=== PATIENT | female | born 1970 | race Caucasian/White ===

== ENCOUNTER 2019-09-09 14:16 | Inpatient (IN) | payer OTHER ==
[~2019-09-09] VITALS: Ht 157.5 cm; Wt 84.0 kg
[2019-09-09] MEDS ORDERED: LISI-538 PO (14:45)
[2019-09-09] MEDS ORDERED: CHLO125TA PO (14:46)
[2019-09-09] MEDS ORDERED: AMLO25TA PO (14:47)
[2019-09-09 14:48] LABS: BASO # 0.1 10^3/uL (0.0-0.2); BASO % 0.8 % (0.0-1.0); EOS # 0.1 10^3/uL (0.0-0.5); EOS % 0.7 % (0.0-3.0); HEMATOCRIT 43.5 % (36.0-47.0); HEMOGLOBIN 15.4 g/dl (12.0-15.5); LYMPH # 1.1 10^3/uL (1.5-5.0); LYMPH % 12.7 % (24.0-44.0); MEAN CORPUSCULAR HEMOGLOBIN 31.4 pg (27.0-33.0); MEAN CORPUSCULAR HGB CONC 35.4 g/dl (32.0-36.5); MEAN CORPUSCULAR VOLUME 88.8 fl (80.0-96.0); MONO # 0.7 10^3/uL (0.0-0.8); MONO % 7.9 % (0.0-5.0); NEUTROPHILS # 6.5 10^3/uL (1.5-8.5); NEUTROPHILS % 77.5 % (36.0-66.0); PLATELET COUNT, AUTOMATED 228 10^3/uL (150-450); WHITE BLOOD COUNT 8.4 10^3/uL (4.0-10.0)
[2019-09-09] MEDS ORDERED: SERT25TA85 PO (14:48)
[2019-09-09] MEDS ORDERED: NITROGLYCERIN 0.4 MG SUBL TABLET SL PRN (15:00)
[2019-09-09 15:06] LABS: INR 1.14; PROTHROMBIN TIME 14.3 SECONDS (11.8-14.0)
[2019-09-09 15:11] LABS: HCG, SERUM QUALITATIVE NEGATIVE (NEGATIVE)
[2019-09-09 15:15] LABS: BLOOD UREA NITROGEN 10 MG/DL (7-18); CALCIUM LEVEL 9.2 MG/DL (8.5-10.1); CARBON DIOXIDE LEVEL 26 MEQ/L (21-32); CHLORIDE LEVEL 105 MEQ/L (98-107); CPK CREATINE PHOSPHOKINASE 97 U/L (26-192); CREATININE FOR GFR 0.75 MG/DL (0.55-1.30); GLOMERULAR FILTRATION RATE > 60.0 (>58); GLUCOSE, FASTING 86 MG/DL (70-100); MB/CK RELATIVE INDEX 1.03 (< OR =4); POTASSIUM SERUM 3.5 MEQ/L (3.5-5.1); SODIUM LEVEL 140 MEQ/L (136-145); TROPONIN I 0.09 NG/ML (< 0.10)
[2019-09-09] MEDS ORDERED: ACETAMINOPHEN TAB 650MG DOSE (2X325MG) PO ONE (15:15)
[2019-09-09] MEDS ORDERED: LABETALOL HCL 100 MG/20 ML VIAL IV STA ×2 (17:01→18:21)
[2019-09-09 19:11] LABS: CK-MB VALUE MASS < 1.0 NG/ML (<3.6); CPK CREATINE PHOSPHOKINASE 66 U/L (26-192); MB/CK RELATIVE INDEX 1.52 (< OR =4)
[2019-09-09] MEDS ORDERED: MAALOX 30 ML SUSP *UDC PO PRN (20:00)
[2019-09-09] MEDS ORDERED: MOM 30ML SUSPENSION UDC PO PRN (20:00)
[2019-09-09] MEDS ORDERED: SERT-155 PO (20:07)
[2019-09-09] MEDS ORDERED: MULTCAP PO (20:07)
--- NOTE | 2019-09-09 20:13 | HPEPDOC ---
General Date of Admission 09/09/19 Date of Service: Sep 09, 2019 Primary Care Physician: A Other Providers [facility] Chief Complaint The patient is a 48-year-old female admitted with a reason for visit of Chest Pain. Source: Patient Exam Limitations: No limitations Timing/Duration: Other Severity: Moderate (today) Associated Symptoms: Chest Pain History of Present Illness 48 years old white female who follows up with [facility] with past medical history of hypertension only has developed on and off chest pain, chest pains or pressure like in nature, radiating to the left arm, not associated with any other symptoms except nausea relieved with nitroglycerin and beta lynda meds. No relationship with any position. Patient at present time is asymptomatic without any chest pain during my interview. Dr. Morales was called from ED and he advised to admit patient to rule out any ischemic event and to control hypertension Home Medications Scheduled Amlodipine Besylate (Amlodipine Besylate) 2.5 Mg Tablet, 2.5 MG PO DAILY, (Reported) Chlorthalidone (Chlorthalidone) 25 Mg Tablet, 25 MG PO DAILY, (Reported) Lisinopril (Lisinopril) 20 Mg Tablet, 20 MG PO DAILY, (Reported) Sertraline Hcl (Sertraline HCl) 25 Mg Tablet, 25 MG PO DAILY, (Reported) Allergies Coded Allergies: No Known Allergies (Unverified , 09/09/19) Past Medical History Medical History Hypertension Surgical History Social History * Smoker: Denies Alcohol: Denies Drugs: denies A-FIB/CHADSVASC A-FIB History Current/History of A-Fib/PAF?: No Review of Systems Constitutional: Denies: Chills, Fever, Malaise, Night Sweats, Weakness, Fatigue, Weight Loss, Lethargy, Other Eyes: Denies: Pain, Vision change, Conjunctivae inflammation, Eyelid inflammation, Redness, Other ENT: Denies: Head Aches, Ear Pain, Dysphagia, Sinus Congestion, Post Nasal Drip, Sore Throat, Epistaxis, Other Symptoms Cardiovascular: Reports: Chest Pain Gastrointestinal: Denies: Nausea, Vomiting, Abdominal Pain, Diarrhea, Constipation, Melena, Hematochezia, Other Symptoms Genitourinary: Denies: Dysuria, Frequency, Incontinence, Hematuria, Retention, Other Symptoms Hematologic: Denies: Bruising, Bleeding Excessively, Petecchia, Purpura, Enl arged Lymph Nodes, Other Hematologic Endocrine: Denies: Polydipsia, Polyphagia, Polyuria, Heat Intolerance, Cold Intolerance, Other Endocrine Sx Musculoskeletal: Denies: Neck Pain, Back Pain, Shoulder Pain, Arm Pain, Hand Pain, Leg Pain, Foot Pain, Joint Pain, Muscle Pain, Spasms, Other Symptoms Neurological: Denies: Weakness, Numbness, Incoordination, Change in speech, Confusion, Seizures, Other Symptoms Psych: Denies: Mood Normal, Anxiety, Depression, Memory Issues, Thoughts of Self Harm, Anger, Thoughts of Harming Other, Other Psych Physical Examination General Exam: Positive: Alert, Cooperative Eye Exam: Positive: PERRLA, Conjunctiva & lids normal ENT Exam: Positive: Atraumatic, Mucous membr. moist/pink Neck Exam: Positive: Supple Chest Exam: Positive: Clear to auscultation, Normal air movement Abdomen Exam: Positive: Normal bowel sounds, Soft Extremity Exam: Positive: Normal pulses Skin Exam: Positive: Nl turgor and temperature Neuro Exam: Positive: Strength at 5/5 X4 ext, Sensation Intact Psych Exam: Positive: Mental status NL, Mood NL, Oriented x 3 Vital Signs Vital Signs Date Time Temp Pulse Resp B/P (MAP) Pulse Ox O2 Delivery O2 Flow Rate FiO2 09/09/19 19:00 154/72 (99) 09/09/19 18:55 57 97 09/09/19 16:40 98.2 09/09/19 14:16 20 Room Air Laboratory Data Labs 24H Laboratory Tests 2 09/09/19 14:33: Immature Granulocyte % (Auto) 0.4, White Blood Count 8.4, Red Blood Count 4.90, Hemoglobin 15.4, Hematocrit 43.5, Mean Corpuscular Volume 88.8, Mean Corpuscular Hemoglobin 31.4, Mean Corpuscular Hemoglobin Concent 35.4, Red Cell Distribution Width 13.1, Platelet Count 228, Neutrophils (%) (Auto) 77.5H, Lymphocytes (%) (Auto) 12.7L, Monocytes (%) (Auto) 7.9H, Eosinophils (%) (Auto) 0.7, Basophils (%) (Auto) 0.8, Neutrophils # (Auto) 6.5, Lymphocytes # (Auto) 1.1L, Monocytes # (Auto) 0.7, Eosinophils # (Auto) 0.1, Basophils # (Auto) 0.1, Nucleated Red Blood Cells % (auto) 0.0, Prothrombin Time 14.3H, Prothromb Time International Ratio 1.14, Anion Gap 9, Glomerular Filtration Rate > 60.0, Blood Urea Nitrogen 10, Creatinine 0.75, Sodium Level 140, Potassium Level 3.5, Chloride Level 105, Carbon Dioxide Level 26, Calcium Level 9.2, Total Creatine Kinase 97, Creatine Kinase MB 1.0, Creatine Kinase MB Relative Index 1.03, Troponin I 0.09, Human Chorionic Gonadotropin, Qual NEGATIVE 09/09/19 18:30: Total Creatine Kinase 66, Creatine Kinase MB < 1.0, Creatine Kinase MB Relative Index 1.52, Troponin I 0.10 CBC/BMP Laboratory Tests 09/09/19 14:33 Red Blood Count 4.90, Mean Corpuscular Volume 88.8, Mean Corpuscular Hemoglobin 31.4, Mean Corpuscular Hemoglobin Concent 35.4, Red Cell Distribution Width 13.1, Neutrophils (%) (Auto) 77.5 H, Lymphocytes (%) (Auto) 12.7 L, Monocytes (%) (Auto) 7.9 H, Eosinophils (%) (Auto) 0.7, Basophils (%) (Auto) 0.8, Neutrophils # (Auto) 6.5, Lymphocytes # (Auto) 1.1 L, Monocytes # (Auto) 0.7, Eosinophils # (Auto) 0.1, Basophils # (Auto) 0.1, Calcium Level 9.2, Total Creatine Kinase 97 Problems (1) Chest pain Status: Acute Problem Text: 38 years old white female with past medical history of uncontrolled hypertension, came in with presentation of chest pain on and off since this morning which gets relieved with nitroglycerin and beta lynda. Once her pressure comes down. Dr. Morales was called from ED and he recommended admission for ruling out ischemic event and to control hypertension Admit to PCU with cardiac telemetry First 2. Cardiac enzymes are essentially negative. Will repeat third enzyme tonight Echocardiogram has been ordered EKG shows right bundle branch block and nonspecific ST-T changes Chest x-ray is essentially within normal limits Lipid profile in a.m. CBC, CMP in a.m. And metoprolol 25 mg by mouth every 12 hours Increase Norvasc to 5 mg by mouth daily Continue lisinopril 20 mg by mouth daily Other recommendations as per cardiology. Once the workup is complete 2 g sodium diet Activity as tolerated Lovenox for DVT prophylaxis (2) Uncontrolled hypertension Status: Chronic Problem Text: add Metoprolol tartrate 25 mg every 12 hours Increase Norvasc to 5mg daily Continue lisinopril 20 mg by mouth daily Plan / VTE VTE Prophylaxis Ordered?: Yes DEBBY KRAMER MD Sep 09, 2019 20:13
[2019-09-09] MEDS ORDERED: zolPIDEM TARTRATE 5 MG TAB PO PRN (20:15)
[2019-09-09 20:53] VITALS: BP 175/81
[2019-09-09] MEDS ORDERED: SERTRALINE HCL 25 MG TABLET PO SCH (21:00)
[2019-09-09] MEDS: METOPROLOL SUCC *XL* 25MG TAB (TopROL *XL*) PO SCH (21:00)
[2019-09-09] MEDS: DOCUSATE SODIUM 100 MG CAP PO SCH (21:36)
[2019-09-09] MEDS ORDERED: LISINOPRIL 20 MG TAB PO SCH (22:00)
[2019-09-09] MEDS: ACETAMINOPHEN TAB 650MG DOSE (2X325MG) PO PRN (23:52)
[2019-09-10] VITALS (8 sets, daily range): BP systolic 134–167; BP diastolic 71–100
[2019-09-10 06:16] LABS: HEMATOCRIT 39.6 % (36.0-47.0); HEMOGLOBIN 13.5 g/dl (12.0-15.5); MEAN CORPUSCULAR HEMOGLOBIN 30.5 pg (27.0-33.0); MEAN CORPUSCULAR HGB CONC 34.1 g/dl (32.0-36.5); MEAN CORPUSCULAR VOLUME 89.4 fl (80.0-96.0); PLATELET COUNT, AUTOMATED 215 10^3/uL (150-450); RED BLOOD COUNT 4.43 10^6/uL (4.00-5.40)
[2019-09-10 06:46] LABS: ALBUMIN 3.4 GM/DL (3.2-5.2); ALT/SGPT 53 U/L (12-78); BILIRUBIN,TOTAL 0.8 MG/DL (0.2-1.0); BLOOD UREA NITROGEN 11 MG/DL (7-18); CALCIUM LEVEL 8.9 MG/DL (8.5-10.1); CARBON DIOXIDE LEVEL 31 MEQ/L (21-32); CHLORIDE LEVEL 107 MEQ/L (98-107); CHOLESTEROL LEVEL 196 MG/DL (<200); CREATININE FOR GFR 0.85 MG/DL (0.55-1.30); GLOMERULAR FILTRATION RATE > 60.0 (>58); GLUCOSE, FASTING 91 MG/DL (70-100); HDL CHOLESTEROL 50 MG/DL (>40); LDL CHOLESTEROL 133 MG/DL (<100); NON-HDL-C 146 MG/DL; POTASSIUM SERUM 3.6 MEQ/L (3.5-5.1); SODIUM LEVEL 144 MEQ/L (136-145); TOTAL PROTEIN 7.3 GM/DL (6.4-8.2); TRIGLYCERIDES LEVEL 67 MG/DL (<150); TROPONIN I 0.06 NG/ML (< 0.10)
--- NOTE | 2019-09-10 07:27 | REP ---
REASON: Chest pain. FINDINGS: The technique utilized in obtaining the radiograph has magnified the cardiac silhouette and accentuated the interstitial markings. The superior mediastinal structures are midline. The cardiac silhouette is unremarkable in size, shape, and position. The diaphragmatic surfaces of the lungs are regular, and the costophrenic angles are clear. The pulmonary khanna are clear. The imaged osseous structures are intact. IMPRESSION: There is no acute cardiopulmonary disease. Electronically Signed by Eugene Johnston DO 09/10/2019 08:58 A
[2019-09-10] MEDS: DOCUSATE SODIUM 100 MG CAP PO SCH ×2 (08:47→21:21)
[2019-09-10] MEDS: METOPROLOL SUCC *XL* 25MG TAB (TopROL *XL*) PO SCH ×2 (08:48→21:23)
[2019-09-10] MEDS: SERTRALINE HCL 50 MG TAB PO SCH (08:49)
[2019-09-10] MEDS: ENOXAPARIN 40 MG/0.4 ML SYRINGE (J1650) SC SCH (08:49)
[2019-09-10] MEDS ORDERED: LISINOPRIL 20 MG TAB PO SCH (09:00)
[2019-09-10] MEDS ORDERED: amLODIPine 5 MG TAB PO SCH (09:00)
--- NOTE | 2019-09-10 11:26 | IPNPDOC ---
Text Note Date of Service The patient was seen on 09/10/19. NOTE Subjective: No any acute events overnight. Patient stated that the chest pain subsided. Patient denies any fever and chills,palpitations, shortness of breath, nausea or vomiting Objective: Vitals: reviewed General: Alert and oriented x 3, not in distress HEENT: No pallor, Mild scleral icterus. Normal oropharynx, NO cervical lymph nodes. Chest: symmetric with bilateral clear air entry, CVS: S1, S2 heard, normal, no murmurs . Abdomen: non-distended, no surgical scars, soft, Minimal tender, no palpable masses, normal bowel sounds heard. Rectal exam: Patient refused / Deferred at this time. Extremities: no pedal edema, pulses palpable. BORDER INSPECTOR: no focal motor or sensory deficits. Moves all extremities Skin: no rash. Assessment and plan Patient is 48 years old female with past medical history of hypertension presented hospital with acute chest pain and hypertensive urgency. Chest pain Resolved EKG shows right bundle branch block and nonspecific ST-T changes Troponin was elevated with peak 0.1, trended down Patient has multiple risks factors for coronary artery diseases including hypertension, hyperlipidemia Continue current cardioprotective medication Appreciate/agree with enterprise application analyst consult Echo pending Most likely patient will need cardiac stress test Hypertensive emergency Blood pressures under control for now Continue cardioprotective medications I increased the dose of lisinopril to 40 mg, amlodipine to 10 mg Elevated troponin Most likely due to demand ischemia Continue to monitor Telemetry VS,Eboni, I+O VS, Eboni, I+O Laboratory Tests 09/09/19 14:33 Red Blood Count 4.90, Mean Corpuscular Volume 88.8, Mean Corpuscular Hemoglobin 31.4, Mean Corpuscular Hemoglobin Concent 35.4, Red Cell Distribution Width 13.1, Neutrophils (%) (Auto) 77.5 H, Lymphocytes (%) (Auto) 12.7 L, Monocytes (%) (Auto) 7.9 H, Eosinophils (%) (Auto) 0.7, Basophils (%) (Auto) 0.8, Neutrophils # (Auto) 6.5, Lymphocytes # (Auto) 1.1 L, Monocytes # (Auto) 0.7, Eosinophils # (Auto) 0.1, Basophils # (Auto) 0.1, Calcium Level 9.2, Total Creatine Kinase 97 09/10/19 05:34 Red Blood Count 4.43, Mean Corpuscular Volume 89.4, Mean Corpuscular Hemoglobin 30.5, Mean Corpuscular Hemoglobin Concent 34.1, Red Cell Distribution Width 13.3, Calcium Level 8.9, Aspartate Amino Transf (AST/SGOT) 24, Alanine Aminotransferase (ALT/SGPT) 53, Alkaline Phosphatase 62, Total Bilirubin 0.8, Triglycerides Level 67, LDL Cholesterol 133 H, Total Protein 7.3, Albumin 3.4 Vital Signs Date Time Temp Pulse Resp B/P (MAP) Pulse Ox O2 Delivery O2 Flow Rate FiO2 09/10/19 08:48 60 160/96 09/10/19 07:42 98.8 18 98 09/09/19 14:16 Room Air I&O- Last 24 Hours up to 6 AM 09/10/19 05:59 Intake Total 480 ml Output Total 700 ml Balance -220 ml EDIN ENRIQUE DO Sep 10, 2019 11:25
[2019-09-10] MEDS: LISINOPRIL 20 MG TAB PO SCH ×2 (11:30→21:24)
--- NOTE | 2019-09-10 19:02 | ECGEPIP ---
[facility] - ED Test Date: 2019-09-09 Pat Name: KEYANA LLANES Department: Room: [place] [address] Gender: Female [employer] Lead: isreal : 1970 Requested By: Jeremias Rey Order Number: [id number] Reading MD: Sai High Measurements Intervals Willard Rate: 50 P: 35 NH: 173 QRS: -6 QRSD: 102 T: 36 QT: 472 QTc: 433 Interpretive Statements SINUS BRADYCARDIA INCOMPLETE RIGHT BUNDLE BRANCH BLOCK MINIMAL VOLTAGE CRITERIA FOR LVH, CONSIDER NORMAL VARIANT Nonspecific ST-T wave abnormalities Rate decreased from tracing done 07-23-15 Electronically Signed on 09-10-2019 19:02:24 EDT by Sai High
[2019-09-11] MEDS: ACETAMINOPHEN TAB 650MG DOSE (2X325MG) PO PRN (02:28)
[2019-09-11 04:00] VITALS: BP 170/80
[2019-09-11 06:09] LABS: HEMATOCRIT 42.1 % (36.0-47.0); MEAN CORPUSCULAR HEMOGLOBIN 30.1 pg (27.0-33.0); MEAN CORPUSCULAR HGB CONC 33.3 g/dl (32.0-36.5); MEAN CORPUSCULAR VOLUME 90.5 fl (80.0-96.0); PLATELET COUNT, AUTOMATED 211 10^3/uL (150-450); RED BLOOD COUNT 4.65 10^6/uL (4.00-5.40)
[2019-09-11 06:23] LABS: BLOOD UREA NITROGEN 11 MG/DL (7-18); CALCIUM LEVEL 8.7 MG/DL (8.5-10.1); CARBON DIOXIDE LEVEL 31 MEQ/L (21-32); CHLORIDE LEVEL 108 MEQ/L (98-107); CREATININE FOR GFR 0.82 MG/DL (0.55-1.30); GLOMERULAR FILTRATION RATE > 60.0 (>58); GLUCOSE, FASTING 99 MG/DL (70-100); MAGNESIUM LEVEL 2.1 MG/DL (1.8-2.4); POTASSIUM SERUM 3.3 MEQ/L (3.5-5.1); SODIUM LEVEL 144 MEQ/L (136-145)
[2019-09-11 08:00] VITALS: BP 188/94
[2019-09-11] MEDS ORDERED: POTASSIUM CHLORIDE 10 MEQ SR TABLET PO ONE (08:00)
[2019-09-11] MEDS ORDERED: amLODIPine 5 MG TAB PO SCH ×2 (09:00)
[2019-09-11] MEDS: ENOXAPARIN 40 MG/0.4 ML SYRINGE (J1650) SC SCH (09:03)
[2019-09-11] MEDS: SERTRALINE HCL 50 MG TAB PO SCH (09:03)
[2019-09-11] MEDS: METOPROLOL SUCC *XL* 25MG TAB (TopROL *XL*) PO SCH (09:04)
[2019-09-11] MEDS: DOCUSATE SODIUM 100 MG CAP PO SCH ×2 (09:04→20:43)
[2019-09-11] MEDS: ATORVASTATIN 20 MG TAB PO SCH (09:04)
[2019-09-11] MEDS: LISINOPRIL 20 MG TAB PO SCH ×2 (09:04→20:42)
[2019-09-11 12:00] VITALS: BP 160/87
[2019-09-11] MEDS: hydrALAZINE INJ 20 MG/ML VIAL IV SCH ×3 (14:43→20:30)
[2019-09-11 16:00] VITALS: BP 147/62
[2019-09-11] MEDS: CHLORTHALIDONE 25 MG TAB PO SCH (17:22)
--- NOTE | 2019-09-11 19:02 | IPNPDOC ---
Text Note Date of Service The patient was seen on 09/11/19. NOTE Subjective: No any acute events overnight. No chest pain. Systolic blood pre ssure in the morning was elevated to 188 Patient denies any fever and chills,palpitations, shortness of breath, nausea or vomiting Objective: Vitals: reviewed General: Alert and oriented x 3, not in distress HEENT: No pallor, Mild scleral icterus. Normal oropharynx, NO cervical lymph nodes. Chest: symmetric with bilateral clear air entry, CVS: S1, S2 heard, normal, no murmurs . Abdomen: non-distended, no surgical scars, soft, Minimal tender, no palpable masses, normal bowel sounds heard. Rectal exam: Patient refused / Deferred at this time. Extremities: no pedal edema, pulses palpable. DETENTION ATTENDANT: no focal motor or sensory deficits. Moves all extremities Skin: no rash. Assessment and plan Patient is 48 years old female with past medical history of hypertension presented hospital with acute chest pain and hypertensive urgency. Chest pain Resolved EKG shows right bundle branch block and nonspecific ST-T changes Troponin was elevated with peak 0.1, trended down Patient has multiple risks factors for coronary artery diseases including hypertension, hyperlipidemia Continue current cardioprotective medication Appreciate/agree with batch maker consult Echo pending Most likely patient will need cardiac stress test Hypertensive emergency Blood pressures under control for now Continue cardioprotective medications I increased the dose of lisinopril to 40 mg, amlodipine to 10 mg, I added chlorthalidone Elevated troponin Most likely due to demand ischemia Continue to monitor Telemetry VS,Fishbone, I+O VS, Fishbone, I+O Laboratory Tests 09/11/19 05:21 Red Blood Count 4.65, Mean Corpuscular Volume 90.5, Mean Corpuscular Hemoglobin 30.1, Mean Corpuscular Hemoglobin Concent 33.3, Red Cell Distribution Width 13.5, Calcium Level 8.7 Vital Signs Date Time Temp Pulse Resp B/P (MAP) Pulse Ox O2 Delivery O2 Flow Rate FiO2 09/11/19 16:42 147/62 09/11/19 16:00 97.3 54 20 97 09/09/19 14:16 Room Air I&O- Last 24 Hours up to 6 AM 09/11/19 05:59 Intake Total 1080 ml Output Total 1700 ml Balance -620 ml EDIN ENRIQUE DO Sep 11, 2019 19:02
[2019-09-11 20:00] VITALS: BP 163/89
[2019-09-11] MEDS: METOPROLOL TART 25 MG TABLET PO SCH (20:43)
[2019-09-11 23:59] VITALS: BP 150/72
[2019-09-12] MEDS: hydrALAZINE INJ 20 MG/ML VIAL IV SCH ×4 (00:31→13:00)
[2019-09-12 02:54] VITALS: BP 160/90
[2019-09-12 04:00] VITALS: BP 140/84
[2019-09-12 05:44] LABS: HEMATOCRIT 43.5 % (36.0-47.0); HEMOGLOBIN 14.4 g/dl (12.0-15.5); MEAN CORPUSCULAR HEMOGLOBIN 29.9 pg (27.0-33.0); MEAN CORPUSCULAR HGB CONC 33.1 g/dl (32.0-36.5); MEAN CORPUSCULAR VOLUME 90.4 fl (80.0-96.0); PLATELET COUNT, AUTOMATED 216 10^3/uL (150-450); RED BLOOD COUNT 4.81 10^6/uL (4.00-5.40); WHITE BLOOD COUNT 7.2 10^3/uL (4.0-10.0)
[2019-09-12 06:06] LABS: BLOOD UREA NITROGEN 14 MG/DL (7-18); CALCIUM LEVEL 8.6 MG/DL (8.5-10.1); CARBON DIOXIDE LEVEL 30 MEQ/L (21-32); CHLORIDE LEVEL 109 MEQ/L (98-107); GLOMERULAR FILTRATION RATE > 60.0 (>58); GLUCOSE, FASTING 89 MG/DL (70-100); POTASSIUM SERUM 3.7 MEQ/L (3.5-5.1); SODIUM LEVEL 143 MEQ/L (136-145)
[2019-09-12 08:00] VITALS: BP 152/87
--- NOTE | 2019-09-12 08:02 | CR ---
DATE OF CONSULTATION: 09/11/2019 AGE: 48. REFERRING PROVIDER: Dr. Higuera REASON FOR CONSULTATION: Chest pain. PRIMARY CARE PHYSICIAN: Mehran Hogue PRIMARY TECHNICAL SPECIALIST CYTOLOGY: Dr. Nunez/Dr. Romero HISTORY OF PRESENT ILLNESS: 48-year-old woman with a history of hypertension and has been on antihypertensive for the last 7 years. Lately, her blood pressure has been elevated and she went to see her primary on and no further recommendations were given to her. She then was at Dr. Nunez' office the next day and she was started on a small dose of amlodipine 2.5 mg p.o. daily and the SLY was changed to chlorthalidone. Her blood pressure continued to be elevated and at one point reported to be 199/103 and she was having chest pain. She came to the emergency room for further evaluation. She was admitted for further management and monitoring. Cardiology consult was called. When I saw Mrs. Pretty Cohen this evening, she was laying supine in bed in no acute distress at rest. Very pleasant woman. She has not been having any chest pain yesterday and today and she does ambulate often around the nursing station. The chest pain was sharp in nature at home. She was having also a lot of headaches. There was no blurred vision or dizziness or near syncope. There is no associated shortness of breath, pedal edema, orthopnea, palpitations. She related that she takes her medications regularly. She denies any cough or hemoptysis or fever. She had no nausea or vomiting, diarrhea, melena or hematemesis. She has no focal manifestation. There is no acute swelling or redness of the joints. PAST MEDICAL HISTORY: She has a past medical history positive for hypertension, hyperlipidemia, anxiety, depression. There is no history of diabetes mellitus, coronary artery disease, myocardial infarction, congestive heart failure, significant valvular heart disease, atrial fibrillation, CVA, transient ischemic attack (TIA), cardiomyopathy, sudden cardiac . There is no history of liver disease or artery disease. PAST SURGICAL HISTORY: Positive for otherwise unremarkable. FAMILY HISTORY: Positive for hypertension in her father. SOCIAL HISTORY: The patient denies any smoking, EtOH abuse or illicit drugs. ALLERGIES: She has no known drug allergies. ADVANCED DIRECTIVES: The patient is a FULL CODE. CURRENT MEDICATIONS: - amlodipine 10 mg by mouth daily - metoprolol tartrate 25 mg by mouth twice a day - chlorthalidone 25 mg by mouth daily - hydralazine 10 mg IV every 4 hours - atorvastatin 40 mg by mouth daily - lisinopril 10 mg twice a day - Lovenox 40 mg subcutaneous daily - sertraline (Zoloft) 50 mg by mouth daily - docusate sodium 100 mg by mouth twice a day - zolpidem tartrate 5 mg at hour of sleep for insomnia - Tylenol 650 mg every 4 hours as needed for pain or fever - magnesium oxide 30 mL by mouth daily as needed for constipation - Mylanta 30 mL by mouth daily as needed MEDICATIONS AT HOME: - amlodipine 2.5 mg p.o. daily - chlorthalidone 25 mg p.o. daily - lisinopril 20 mg p.o. daily - sertraline 25 mg p.o. daily PHYSICAL EXAMINATION: The patient is alert and oriented, in no acute distress at rest. Her vital signs this morning revealed a blood pressure of 188/94 and when I saw her, her blood pressure was 147/62 with a pulse of 54, respiration 18 and her maximum temperature was 97.3 degrees Fahrenheit with an oxygen saturation of 97% on room air. She has a negative fluid balance of 740 mL for 09/10/2019. HEAD: Atraumatic. NECK: Supple and no jugular venous distention (JVD) appreciated. Lungs: Did not reveal any wheezing or crackles. Heart examination revealed normal sinus rhythm without gallops. The point of maximum impulse (PMI) is not displaced. There is no rub. I could not appreciate any murmurs. Abdomen is soft and nontender and bowel sounds are present. No bruits. Extremities revealed no pedal edema. Next peripheral pulses, dorsalis pedis +2 and equal. NEUROLOGIC EXAMINATION: Negative for focal deficit. LABORATORY DATA: BMP done today revealed a sodium of 144, potassium 3.3, chloride 108, CO2 31, BUN 11, creatinine 0.82, GFR more than 60, fasting glucose 99, calcium 8.7, serum magnesium is 2.1. Serum potassium on admission was 3.5. Serum troponin has been negative. Liver enzymes on 09/10/2019 revealed a total bilirubin of 0.8, AST 24, ALT 54, alkaline phosphatase 62, total protein 7.3, albumin 3.4. Lipid profile revealed a total cholesterol of 196 with a LDL cholesterol 133, HDL 50 and triglycerides 67. HCG was negative. CBC done today revealed WBC of 7.0, hemoglobin 14.0, hematocrit 42.1, platelet 211,000. PT was 14.3 with an INR of 1.14. Chest x-ray done on admission 09/09/2019 revealed no acute disease process. EKG done on admission 09/09/2019 revealed at 50 beats per minute, incomplete right bundle branch block and nonspecific ST-T abnormalities noted in the right leads. The patient has low voltage criteria for left ventricular hypertrophy. IMPRESSION: 1. Atypical chest pain in this 48-year-old woman with hypertension and hyperlipidemia who presented to the emergency room on 09/09/2019 with a markedly elevated blood pressure. Serum troponin has been negative, and she has not been having any chest pain. Her blood pressure seems to have and we will continue to monitor her and if she remains the same, she probably can be discharged home tomorrow for followup as an outpatient with her primary hedis abstractor and her primary provider. The amlodipine, as well as the lisinopril were increased and I will continue the same for now. We should try to taper off and avoid the hydralazine. We will continue with the chlorthalidone. We have discussed about low-salt diet and low-cholesterol diet, as well as weight loss and exercise, and she has been doing better. She stated that she has was about 70 pounds over 1 to 2 years. She has not been using much NSAID. She also is on a small dose of metoprolol tartrate and if blood pressure is elevated tomorrow, consider switching to bisoprolol at 5 mg p.o. daily. That will probably help better with her blood pressure. She had an echocardiogram done and this will need to be reviewed prior to her discharge. If blood pressure remains elevated on those four drugs, we should consider workup for a cause of hypertension. It was a pleasure to participate in the care of Mrs. Pretty Cohen for her underlying cardiac condition. Dr. Romero will be coming back tomorrow and he will be informed. In the meantime, please do not hesitate to call if any questions.
[2019-09-12] MEDS: DOCUSATE SODIUM 100 MG CAP PO SCH (08:22)
[2019-09-12 08:23] VITALS: BP 140/84
[2019-09-12] MEDS: ENOXAPARIN 40 MG/0.4 ML SYRINGE (J1650) SC SCH (08:23)
[2019-09-12] MEDS: LISINOPRIL 20 MG TAB PO SCH (08:23)
[2019-09-12] MEDS: ATORVASTATIN 20 MG TAB PO SCH (08:23)
[2019-09-12] MEDS: CHLORTHALIDONE 25 MG TAB PO SCH (08:23)
[2019-09-12] MEDS: SERTRALINE HCL 50 MG TAB PO SCH (08:23)
[2019-09-12] MEDS: METOPROLOL TART 25 MG TABLET PO SCH (08:23)
[2019-09-12] MEDS ORDERED: amLODIPine 10 MG TAB PO SCH (09:00)
[2019-09-12 12:00] VITALS: BP 156/81
[2019-09-12] MEDS ORDERED: AMLO10TA5 PO (13:53)
[2019-09-12] MEDS ORDERED: CHLO25TA PO (13:53)
[2019-09-12] MEDS ORDERED: LISI40TA PO (13:53)
--- NOTE | 2019-09-12 16:28 | DS.PDOC ---
Discharge Summary General Date of Admission Sep 09, 2019 at 19:57 Date of Discharge 09/12/19 Discharge Summary PROCEDURES PERFORMED DURING STAY: [None]. ADMITTING DIAGNOSES: 1. Chest pain 2. Hypertensive emergency 3. Elevated Troponin DISCHARGE DIAGNOSES: 1. Chest pain 2. Hypertensive emergency 3. Elevated Troponin COMPLICATIONS/CHIEF COMPLAINT: Chest Pain. HISTORY OF PRESENT ILLNESS: "48 years old white female who follows up with [facility] with past medical history of hypertension only has developed on and off chest pain, chest pains or pressure like in nature, radiating to the left arm, not associated with any other symptoms except nausea relieved with nitroglycerin and beta lynda meds. No relationship with any position. Patient at present time is asymptomatic without any chest pain during my interview. Dr. Morales was called from ED and he advised to admit patient to rule out any i schemic event and to control hypertension" HOSPITAL COURSE: Patient was treated for hypertensive emergency with addition of chlorthalidone and increase dose of lisinopril and amlodipine. BP improved and chest pain resolved. She was evaluated by cardiology during course of admission. Since her symptoms had resolved with now stable BP, she was cleared for discharge to follow up with cardiology and PMD as outpatient. Will need to f/u ECHO. DISCHARGE MEDICATIONS: Please see below. ALLERGIES: Please see below. PHYSICAL EXAMINATION ON DISCHARGE: VITAL SIGNS: Please see below. General: No acute distress, Alert Eyes: Normal sclera, EOMI HENT: Atraumatic Cardiovascular: Normal rate, normal rhythm. Pulmonary: Clear to auscultation b/l, no wheezing GI: Soft, nontender, nondistended Skin: Warm and dry Neuro: CN grossly intact. No focal deficits. Strengths equal b/l. Psych: oriented x 3 LABORATORY DATA: Please see below. IMAGING: CXR- IMPRESSION: There is no acute cardiopulmonary disease. ACTIVITY: [As tolerated]. DIET: Low sodium diet DISCHARGE PLAN: f/u PMD and Cardiology c/w current regimen of anti-hypertensives as prescribed f/u ECHO DISPOSITION: Home, Self-Care. DISCHARGE INSTRUCTIONS: f/u PMD and Cardiology c/w current regimen of anti-hypertensives as prescribed f/u ECHO ITEMS TO FOLLOWUP ON ON OUTPATIENT: ECHO DISCHARGE CONDITION: [Stable]. TIME SPENT ON DISCHARGE: 32 minutes. Vital Signs/I&Os Vital Signs Date Time Temp Pulse Resp B/P (MAP) Pulse Ox O2 Delivery O2 Flow Rate FiO2 09/12/19 12:00 98.0 51 18 156/81 (106) 98 09/09/19 14:16 Room Air I&O- Last 24 Hours up to 6 AM 09/12/19 06:00 Intake Total 354 ml Output Total 850 ml Balance -496 ml Laboratory Data Labs 24H Laboratory Tests 2 09/12/19 05:05: Nucleated Red Blood Cells % (auto) 0.0, Anion Gap 4L, Glomerular Filtration Rate > 60.0, Blood Urea Nitrogen 14, Creatinine 0.90, Sodium Level 143, Potassium Level 3.7, Chloride Level 109H, Carbon Dioxide Level 30, Calcium Level 8.6, Mag nesium Level 2.0 CBC/BMP Laboratory Tests 09/12/19 05:05 Red Blood Count 4.81, Mean Corpuscular Volume 90.4, Mean Corpuscular Hemoglobin 29.9, Mean Corpuscular Hemoglobin Concent 33.1, Red Cell Distribution Width 13.2, Calcium Level 8.6 Discharge Medications Scheduled Amlodipine Besylate (Amlodipine Besylate) 10 Mg Tablet, 10 MG PO DAILY Chlorthalidone (Chlorthalidone) 25 Mg Tablet, 25 MG PO DAILY Lisinopril (Lisinopril) 40 Mg Tablet, 40 MG PO DAILY Multivitamin (Multivitamins) 1 Each Capsule, 1 CAP PO DAILY, (Reported) Sertraline HCl (Sertraline HCl) 50 Mg Tablet, 50 MG PO DAILY, (Reported) Allergies Coded Allergies: No Known Allergies (Unverified , 09/09/19) AYE CRUZ MD Sep 12, 2019 16:28
== END 2019-09-12 15:32 | disposition home or self-care (01) | DRG 313 ==
LOC: M ED 14:16 → M ED INP 19:57 → M PCU 20:53
PROVIDERS: ADMIT Internal Medicine; ATTEND Student in an Organized Health Care Education/Training Program
DX: R07.89 Other chest pain (principal); I24.8 Other forms of acute ischemic heart disease; I16.1 Hypertensive emergency; E78.5 Hyperlipidemia, unspecified; I45.10 Unspecified right bundle-branch block; R51 Headache; F41.9 Anxiety disorder, unspecified; F32.9 Major depressive disorder, single episode, unspecified; I10 Essential (primary) hypertension; Z79.899 Other long term (current) drug therapy

== ENCOUNTER 2022-07-19 07:41 | Emergency (ER) | payer OTHER ==
[~2022-07-19] VITALS: Ht 160 cm; Wt 106.4 kg
[~2022-07-19 07:41] MED LIST: AMLO1TAB25 PO; AMLO25TA PO; CHLO125TA PO; CHLO25TA PO; LISI20TA33 PO; LISI40TA4 PO; MULTCAP PO; SERT25TA85 PO; SERT50TA29 PO
[2022-07-19] MEDS ORDERED: CHLO125TA PO (07:52)
[2022-07-19] MEDS ORDERED: AMLO2.5T3 PO (07:52)
[2022-07-19] MEDS ORDERED: HYDR-3713 PO (07:52)
[2022-07-19 09:13] VITALS: BP 144/89
== END 2022-07-19 09:15 | disposition home or self-care (01) ==
LOC: M ED 07:41
DX: M75.31 Calcific tendinitis of right shoulder (principal); S46.001A Unspecified injury of muscle(s) and tendon(s) of the rotator cuff of right shoulder, initial encounter; W01.0XXA Fall on same level from slipping, tripping and stumbling without subsequent striking against object, initial encounter; Y92.89 Other specified places as the place of occurrence of the external cause; Y99.0 Civilian activity done for income or pay; G43.909 Migraine, unspecified, not intractable, without status migrainosus; Z79.899 Other long term (current) drug therapy

== ENCOUNTER 2024-04-19 03:22 | Emergency (ER) | payer OTHER ==
[~2024-04-19] VITALS: Ht 160 cm; Wt 100.0 kg
[~2024-04-19 03:22] MED LIST changes: +AMLO2.5T3 PO; +HYDR-3713 PO
[2024-04-19 04:06] LABS: BASO # 0.1 10^3/uL (0.0-0.2); EOS # 0.3 10^3/uL (0.0-0.5); EOS % 3.6 % (0.0-3.0); HEMATOCRIT 43.6 % (36.0-47.0); HEMOGLOBIN 14.9 g/dl (12.0-15.5); LYMPH # 1.8 10^3/uL (1.5-5.0); LYMPH % 21.3 % (24.0-44.0); MEAN CORPUSCULAR HEMOGLOBIN 29.4 pg (27.0-33.0); MEAN CORPUSCULAR HGB CONC 34.2 g/dl (32.0-36.5); MONO # 0.6 10^3/uL (0.0-0.8); MONO % 7.6 % (2.0-8.0); NEUTROPHILS # 5.5 10^3/uL (1.5-8.5); PLATELET COUNT, AUTOMATED 244 10^3/uL (150-450); RED BLOOD COUNT 5.07 10^6/uL (4.00-5.40); WHITE BLOOD COUNT 8.3 10^3/uL (4.0-10.0)
[2024-04-19 04:24] LABS: CK-MB VALUE MASS < 1.0 NG/ML (<3.6)
[2024-04-19 04:25] LABS: CPK CREATINE PHOSPHOKINASE 84 U/L (34-145); MB/CK RELATIVE INDEX 1.19 (< OR =4)
[2024-04-19 04:26] LABS: ALBUMIN 3.7 G/DL (3.2-5.2); ALKALINE PHOSPHATASE 64 U/L (46-116); ALT/SGPT 16 U/L (7.0-40); AST/SGOT 12 U/L (<34); BILIRUBIN,DIRECT 0.2 MG/DL (<0.4); BILIRUBIN,TOTAL 0.8 MG/DL (0.3-1.2); BLOOD UREA NITROGEN 11 MG/DL (9-23); CALCIUM LEVEL 9.8 MG/DL (8.5-10.1); CARBON DIOXIDE LEVEL 25 MMOL/L (20-31); CHLORIDE LEVEL 110 MMOL/L (98-107); CREATININE FOR GFR 0.75 MG/DL (0.55-1.30); GLOMERULAR FILTRATION RATE > 60.0 (>51); GLUCOSE, FASTING 97 MG/DL (60-100); POTASSIUM SERUM 3.8 MMOL/L (3.5-5.1); SODIUM LEVEL 142 MMOL/L (136-145); TOTAL PROTEIN 7.3 G/DL (5.7-8.2)
[2024-04-19 04:51] LABS: APPEARANCE, URINE CLEAR (CLEAR); BACTERIA, URINE AUTO NEGATIVE (NEGATIVE); BILIRUBIN, URINE AUTO NEGATIVE (NEGATIVE); BLOOD, URINE BLOOD 1+ (NEGATIVE); COLOR, URINE STRAW (YELLOW); GLUCOSE, URINE (UA) AUTO NEGATIVE (NEGATIVE); KETONE, URINE AUTO NEGATIVE (NEGATIVE); LEUKOCYTE ESTERASE, URINE AUTO TRACE (NEGATIVE); NITRITE, URINE AUTO NEGATIVE (NEGATIVE); PROTEIN, URINE AUTO NEGATIVE (NEGATIVE); RBC, URINE AUTO 1 /HPF (0-3); SPECIFIC GRAVITY URINE AUTO 1.005 (1.002-1.035); SQUAMOUS EPITHELIAL CELL UR AU 1 /HPF (0-6); UROBILINOGEN, URINE AUTO 0.2 mg/dL (0.0-2.0); WBC, URINE AUTO 2 /HPF (0-3)
[2024-04-19] MEDS ORDERED: LISI20TA33 PO ×2 (05:33→06:02)
[2024-04-19 06:21] VITALS: BP 151/67; TEMP 97.5; O2SAT 95
== END 2024-04-19 06:43 | disposition home or self-care (01) ==
LOC: M ED 03:22
DX: I10 Essential (primary) hypertension (principal); Z79.899 Other long term (current) drug therapy